=== PATIENT | male | born 1965 | race Caucasian/White ===

== ENCOUNTER → 2017-02-26 15:20 | Outpatient (CLI) | payer BC, SELFPAY ==
[2017-02-26 18:09] LABS: Anion Gap 9 (5-15); BUN 14 mg/dL (7-18); BUN/Creat Ratio 15.8 RATIO (10-20); Calcium,Total 8.8 mg/dL (8.5-10.1); Chloride 101 mmol/L (98-107); Cholesterol 226 mg/dL (200); Creatinine, Serum 0.88 mg/dL (0.70-1.30); EST Glomerular Filtration Rate 96 mL/min (>60); Est Glom Filt Rate - Afr Amer 116 mL/min (>60); Glucose 91 mg/dL (70-110); High Density Lipoprotein 43 mg/dL; PSA,Total - Annual Screen 0.64 ng/mL (0.00-4.00); Potassium 3.7 mmol/L (3.5-5.1); Sodium Level 135 mmol/L (136-145); Triglycerides 185 mg/dL; Very Low Density Lipoprotein 37 mg/dL (5-40)
== END ==
PROVIDERS: Family Provider Family Medicine; PCP Family Medicine; Visit Provider Family Medicine
DX: Z00.00 Encounter for general adult medical examination without abnormal findings (principal); Z12.5 Encounter for screening for malignant neoplasm of prostate
CPT/HCPCS: 36415; 80048; 80061; 84153; G0103

== ENCOUNTER → 2018-09-14 07:01 | Outpatient (CLI) | payer BC, SELFPAY ==
[2018-09-14 08:14] LABS: Anion Gap 6 (5-15); BUN 16 mg/dL (7-18); BUN/Creat Ratio 16.3 RATIO (10-20); Calcium,Total 9.3 mg/dL (8.5-10.1); Chloride 105 mmol/L (98-107); Cholesterol 208 mg/dL (200); Creatinine, Serum 0.98 mg/dL (0.70-1.30); EST Glomerular Filtration Rate 84 mL/min (>60); Est Glom Filt Rate - Afr Amer 102 mL/min (>60); Glucose 104 mg/dL (74-106); High Density Lipoprotein 40 mg/dL; PSA,Total - Annual Screen 0.93 ng/mL (0.00-4.00); Potassium 4.4 mmol/L (3.5-5.1); Sodium Level 141 mmol/L (136-145); Triglycerides 182 mg/dL; Very Low Density Lipoprotein 36 mg/dL (5-40)
[2018-09-14 13:48] LABS: Vitamin D,25 Hydroxy 27.3 ng/mL (29.95-100.01)
== END ==
PROVIDERS: Family Provider Family Medicine; PCP Family Medicine; Referring Provider Family Medicine; Visit Provider Family Medicine
DX: Z00.00 Encounter for general adult medical examination without abnormal findings (principal); Z12.5 Encounter for screening for malignant neoplasm of prostate
CPT/HCPCS: 36415; 80048; 80061; 82306; 84153; G0103

== ENCOUNTER 2019-05-26 10:12 | Emergency (ER) | payer BC, SELFPAY ==
[2019-05-26] VITALS (7 sets, daily range): BP systolic 118–166; BP diastolic 76–88; PULSE 86–104; RESP 11–19; TEMP 36.7; O2SAT 94–96; BMI 33.5
--- NOTE | 2019-05-26 10:27 | ED.VISSUMM ---
- ER Visit Summary Date of Service: 05/26/19 Chief Complaint: Chest pain History of Present Illness: The patient is a 53 M who presents with chest pain that is been constant for the past week. Patient states pain actually began 2 weeks ago but was intermittent the first week. Patient describes as a heaviness and pressure. Patient states the pain is over the substernal and left chest area. Patient states she does get some numbness and tingling down his left arm. Patient states his pain is worse with stress but it improves at night when he lays down. Patient admits to some shortness of breath with this. Patient also admits to some palpitations. Patient also states he feels like he has some reflux disease at times. Patient denies any nausea or vomiting. Patient denies any diaphoresis. Patient denies any cough or fevers. Patient denies any recent travel or recent surgery. Patient denies any history of DVT or PE. Patient states he quit smoking cigars 4 days ago. Physical Examination: Vital signs are stable. Patient is afebrile. Patient is in no acute distress. Oral mucosa is pink and moist. Neck is supple. Trachea is midline. There is no JVD noted. Heart was regular rate and rhythm. Lungs are clear and equal bilaterally. Abdomen is soft. Bowel sounds are normal. There is no tenderness. There is no rebound or guarding noted. Skin is warm dry. Cranial nerves II through XII are intact. There are no focal motor or sensory deficits noted. Extremities are intact. There is no calf tenderness or edema. Test Results: EKG showed normal sinus rhythm with a rate of 87. There are no acute ST or T wave changes. This was unchanged compared to previous EKG dated 08/11/1998. CBC, basic metabolic profile, troponin, and d-dimer were obtained were all normal. Portable chest x-ray was obtained. There is no acute cardiopulmonary process. This was interpreted by the radiologist and myself. Emergency Department Course and Treatment: Patient was given aspirin and sublingual nitroglycerin here. Patient had no change in his pain with the sublingual nitroglycerin. Patient has a HEART score of 3 and a KATARZYNA risk score of 0. Patient was advised that this is low risk for acute cardiac event. Case was discussed with Dr. Kelley. He will follow-up with the patient as an outpatient. Patient is agreeable with this plan. All questions were answered. Disposition: Discharge home Impression: Chest pain of uncertain etiology This note was generated with [employer] dictation software. It may contain incorrect words, spelling, and punctuation that were not noted in review of the chart prior to signing ED Disposition - Plan for ED Patient: Disposition: Home or Assisted Living Diagnosis: Chest pain of uncertain etiology Instructions: ED Chest Pain Atypical Unkn Cause Prescriptions: Hydrocodone Bitart/Apap 5-325 [[place] 5MG-325MG] 1 tab PO Q4H PRN PRN 2 Days #10 tab PRN Reason: Pain Prescription Printed Referrals: Steven Kelley MD [Primary Care Provider] - 3-5 Days
[2019-05-26 10:38] LABS: Absolute Lymphocyte Count 2.16 X10^3/uL (0.83-4.51); Absolute Neutrophil Count 4.4 X10^3/uL (2.0-7.7); Basophil# 0.03 X10^3/uL; Basophil% 0.4 % (0-1); Eosinophil# 0.07 X10^3/uL; Hematocrit 51.1 % (40-54); Hemoglobin 17.6 g/dL (13.0-16.5); Lymphocyte # 2.16 X10^3/ul (4.0); Lymphocyte % 29.7 % (19-41); Mean Corp Hgb Conc 34.4 g/dL (32-36); Mean Corpuscular Hgb 32.4 pg (27.0-32.0); Mean Corpuscular Volume 93.9 fL (80-94); Mean Platelet Vol. 8.9 fl (6.2-12.0); Monocyte# 0.64 X10^3/uL; Monocyte% 8.8 % (0-10); NRBC Flagged by Analyzer 0 % (0-5); Neutrophil # 4.36 X10^3/uL (2.7-7.7); Neutrophil % 59.8 % (47-70); Platelet Count 283 K/mm3 (150-450); RBC Distribution Width CV 13.1 % (11.6-14.6); Red Blood Count 5.44 M/mm3 (4.6-6.2); White Blood Count 7.3 K/mm3 (4.4-11.0)
[2019-05-26] MEDS: Aspirin 81 MG TAB.CHEW 324 MG PO (10:39)
--- NOTE | 2019-05-26 10:39 | RAD_ITS ---
STUDY: X-RAY CHEST REASON FOR EXAM: Male, 53 years old. CHEST PAIN x2 WEEKS, NOW HAVING N/T IN LEFT ARM TECHNIQUE: Single AP portable view of the chest. COMPARISON: Comparison is made with prior study dated February 08, 2012. FINDINGS: EKG electrodes are seen. The lungs are clear and expanded. There is no demonstrated pleural abnormality. Normal size heart. Normal mediastinum and [place]. Normal visualized pulmonary arteries. Normal visualized aortic arch and descending thoracic aorta. There are degenerative changes of the visualized thoracic spine. Normal visualized ribs, clavicles, and shoulders. There is no demonstrated abnormality of the visualized soft tissue structures of the upper abdomen. RAD/Chest 1 View (Portable) IMPRESSION: No acute abnormality is seen. Electronically Signed: Janusz Atkins, at 11:01 EDT , Service support ,
[2019-05-26] MEDS: Nitroglycerin SL (ED/IMG/CATH) 0.4 MG TABLET SUBLINGUAL ×2 (10:40→10:58)
[2019-05-26 10:49] LABS: Anion Gap 5 (5-15); BUN 17 mg/dL (7-18); BUN/Creat Ratio 16.7 RATIO (10-20); Calcium,Total 9.3 mg/dL (8.5-10.1); Chloride 103 mmol/L (98-107); Creatinine, Serum 1.02 mg/dL (0.70-1.30); EST Glomerular Filtration Rate 81 mL/min (>60); Est Glom Filt Rate - Afr Amer 98 mL/min (>60); Estimated Creatinine Clearance 85.48 ml/min; Glucose 109 mg/dL (74-106); Potassium 3.9 mmol/L (3.5-5.1); Sodium Level 136 mmol/L (136-145)
[2019-05-26 10:58] LABS: D-Dimer Quantitative (DVT/PE) <= 0.27 FEU/ug/m (0.27-0.49)
[2019-05-29 09:07] LABS: Testosterone, Free 8.22 ng/dL (5.00-21.00)
[2019-05-29 13:08] LABS: Testosterone, % Free 2.75 % (1.50-4.20); Testosterone, Total 299 ng/dL (264-916)
== END 2019-05-26 12:13 | disposition home or self-care (01) ==
PROVIDERS: Emergency Provider Emergency Medicine; PCP Family Medicine
DX: R07.9 Chest pain, unspecified (principal); Z87.891 Personal history of nicotine dependence
CPT/HCPCS: 71045; 80048; 84402; 84403; 84484; 85025; 85379; 93005; 99285; A4216

== ENCOUNTER → 2019-06-02 06:22 | Outpatient (CLI) | payer BC, SELFPAY ==
[2019-05-26 10:13] VITALS: BMI 33.5
--- NOTE | 2019-06-02 10:52 | STRESSREP ---
Stress Test Report Exercise myocardial perfusion stress test. 53-year-old man with a history of chest pain. Stress protocol: Resting EKG demonstrates normal sinus rhythm with a rate of 82 bpm normal intervals are noted resting blood pressure is 128/86 mmHg. The patient exercised according to regular Tarik protocol for a total duration of 7 minutes and 30 seconds the maximum heart rate attained was 160 bpm which was 96% of maximum predicted heart rate the maximum workload was 9.3 metabolic equivalents. At rest there were no ST or T wave changes noted to suggest ischemia at peak exercise upsloping ST changes only were noted with no meet the criteria for ischemia. The patient did experience chest tightness during stage I of the exercise which got mildly worse in stage II and then got better on discontinuation of the exercise. The resting blood pressure was 128/86 with a peak blood pressure 162/70. Rate-pressure product was 23,300. Myocardial perfusion protocol. 14.0 mCi of technetium 99m sestamibi was injected at rest. The patient exercised for a total duration of 7-1/2 minutes at peak exercise 42.0 mCi of technetium 99m sestamibi was injected stress images were obtained stress and rest images were reconstructed in comparing the short axis vertical long horizontal long axis. Gated images were also obtained per Perfusion SPECT analysis: Review of the stress images demonstrate normal uptake of tracer noted in all areas of the myocardium the resting images similar demonstrate normal uptake of tracer noted in all areas of the myocardium. Conclusion: Exercise myocardial perfusion stress test with no nuclear images suggestive of ischemia. Chest discomfort suggestive of angina noted during exercise. Decent functional capacity.
== END ==
PROVIDERS: PCP Family Medicine; Referring Provider Family Medicine; Visit Provider Family Medicine
DX: R07.89 Other chest pain (principal)
CPT/HCPCS: 78452; 93017; A9500; A4216

== ENCOUNTER 2019-06-26 06:43 | Day surgery (SDC) | payer BC, SELFPAY ==
[2019-06-18 15:40] VITALS: BMI 33.0
[2019-06-25 14:42] VITALS: BMI 33.0
--- NOTE | 2019-06-26 08:44 | CL.D_ITS ---
Patient Name: PAOLA WALTERS Study Date: 06/26/2019 Performing: Adolfo Glover MD Ht: 70.07 inches 178 cm : 1965 Wt: 229.28 lbs 104 kg Age: 54 Gender: male BSA: 2.21 PROCEDURE(S) PERFORMED [id number]/LV CLINICAL PROFILE AND INDICATIONS Indications: Suspected CAD Heart Failure: None Stress/Imaging Date: 06/02/2019Stress Test with SPECT MPI: Negative CAD Presentations: Stable angina. CONCLUSIONS Normal coronary arteries Normal LV size, wall motion,and systolic function RECOMMENDATIONS Medical therapy DESCRIPTION OF PROCEDURE The patient arrived to the procedure lab. The risks and benefits of the procedure as well as a full d escription of our services here and current unavailability of surgical backup were fully explained to the patient and/or their significant other prior to the catheterization. The Timeout was completed, verifying the correct patient and procedure. The patient's procedural site was prepped and draped in the usual fashion. Local anesthetic was given subcutaneously to right radial region with Lidocaine 2% . Using a modified Seldinger technique, arterial access was obtained via the right radial artery, a 6 Fr sheath was inserted. Right Coronary Artery selective angiography was then performed in multiple v iews using a 5 Fr. 4.0 [place] catheter. Left Coronary Artery selective angiography was performed in mu ltiple views using a 5 Fr. 4.0 [place] catheter. Left Ventriculography was performed in AGUDELO projection using a 5 Fr. Pigtail catheter. LV to AO pullback pressures were then recorded.The arterial sheath was pulled and a TR Band was applied for hemostasis, 12 cc of air placed in the band CORONARY ANGIOGRAPHY DOMINANCE: Co- Dominant LEFT HEART ASSESSMENT Left Ventricular Ejection Fraction: by LV Gram 60 % Normal LV wall motion Normal Left Ventricular systolic function Normal Left Ventricular systolic function LEFT MAIN: Angiographically normal LEFT ANTERIOR DESCENDING ARTERY: Angiographically normal CIRCUMFLEX ARTERY: Angiographically normal RIGHT CORONARY ARTERY: Angiographically normal COMPLICATIONS No Complications PROCEDURE MEDICATIONS Versed 1 mg IV Fentanyl 50 mcg IV Versed 1 mg IV Oxygen: 2 L/min via nasal cannula Heparin diluted in 23cc Heparinized saline. Patient given 10cc IA of this solution. 06/26/2019 08:17: 23 Verapamil 2.5mg, Ntg 100mcgs, 2000 units of Heparin diluted in 23cc Heparinized saline. Patient give n 10cc IA of this solution. 06/26/2019 08:17:23 SUMMARY OF HEMODYNAMIC DATA Time AIR REST ECG 07:20:06 AO 124/90 (106) SA 08:20:35 LV 139/19, 23 08:28:01 LV 138/19, 25 08:28:07 LVp 149/23, 35 08:28:49 AOp 137/90 (112) 08:28:54 Signed By Adolfo Glover MD On 06/26/2019 8:43:24 AM Adolfo Glover MD
== END 2019-06-26 10:15 | disposition home or self-care (01) ==
PROVIDERS: PCP Family Medicine; Referring Provider Internal Medicine Cardiovascular Disease; Visit Provider Internal Medicine Cardiovascular Disease
DX: R07.89 Other chest pain (principal); I20.8 Other forms of angina pectoris; Z79.899 Other long term (current) drug therapy; Z79.02 Long term (current) use of antithrombotics/antiplatelets; Z87.891 Personal history of nicotine dependence; R03.0 Elevated blood-pressure reading, without diagnosis of hypertension
CPT/HCPCS: 93458; 99152; 99153; J7040; C1769; C1894; Q9967

== ENCOUNTER → 2019-10-06 16:31 | Outpatient (CLI) | payer BC, SELFPAY ==
[2019-06-25 14:42] VITALS: BMI 33.0
[2019-10-06 18:33] LABS: Anion Gap 4 (5-15); BUN 15 mg/dL (7-18); BUN/Creat Ratio 16.4 RATIO (10-20); Calcium,Total 9.3 mg/dL (8.5-10.1); Chloride 105 mmol/L (98-107); Cholesterol 216 mg/dL (200); Creatinine, Serum 0.91 mg/dL (0.70-1.30); EST Glomerular Filtration Rate 92 mL/min (>60); Est Glom Filt Rate - Afr Amer 111 mL/min (>60); Glucose 88 mg/dL (74-106); High Density Lipoprotein 37 mg/dL; Potassium 3.8 mmol/L (3.5-5.1); Sodium Level 137 mmol/L (136-145); Triglycerides 163 mg/dL; Very Low Density Lipoprotein 33 mg/dL (5-40)
[2019-10-06 19:36] LABS: Vitamin D,25 Hydroxy 70.9 ng/mL
[2019-10-10 12:07] LABS: Testosterone, Free 22.77 ng/dL (5.00-21.00)
[2019-10-10 14:21] LABS: Testosterone, % Free 3.84 % (1.50-4.20); Testosterone, Total 593 ng/dL (264-916)
== END ==
PROVIDERS: PCP Family Medicine; Referring Provider Family Medicine; Visit Provider Family Medicine
DX: Z00.00 Encounter for general adult medical examination without abnormal findings (principal); E29.1 Testicular hypofunction; E55.9 Vitamin D deficiency, unspecified
CPT/HCPCS: 36415; 80048; 80061; 82306; 84402; 84403

== ENCOUNTER → 2020-04-12 16:44 | Outpatient (CLI) | payer BC, SELFPAY ==
[2019-06-25 14:42] VITALS: BMI 33.0
--- NOTE | 2020-04-12 16:46 | RAD_ITS ---
STUDY: X-RAY - LEFT SHOULDER REASON FOR EXAM: Male, 54 years old. INJURY TECHNIQUE: 4 view(s) of the shoulder. COMPARISON: None. FINDINGS: No acute fracture, dislocation or osseous destruction. Moderate/severe acromioclavicular joint arthrosis. Mild glenohumeral joint arthrosis. Left lung clear. No significant soft tissue swelling. RAD/Shoulder min 2 Views IMPRESSION: Left shoulder acutely intact Moderate/severe left AC joint arthrosis Mild left glenohumeral joint arthrosis Electronically Signed: Elmer Lares DO at 8:34 EST Tel , Service support ,
== END ==
PROVIDERS: PCP Family Medicine; Referring Provider Family Medicine; Visit Provider Family Medicine
DX: S49.92XA Unspecified injury of left shoulder and upper arm, initial encounter (principal)
CPT/HCPCS: 73030

== ENCOUNTER → 2022-10-20 | Outpatient (CLI) | payer OTHER, SELFPAY ==
[2022-10-20 17:34] LABS: Absolute Lymphocyte Count 2.59 X10^3/uL (0.83-4.51); Absolute Neutrophil Count 4.2 X10^3/uL (2.0-7.7); Basophil# 0.04 X10^3/uL; Basophil% 0.5 % (0-1); Eosinophil# 0.16 X10^3/uL; Hematocrit 46.1 % (40-54); Hemoglobin 15.7 g/dL (13.0-16.5); Lymphocyte # 2.59 X10^3/ul (0.83-4.51); Lymphocyte % 33.1 % (19-41); Mean Corp Hgb Conc 34.1 g/dL (32-36); Mean Corpuscular Hgb 32.6 pg (27.0-32.0); Mean Corpuscular Volume 95.8 fL (80-94); Mean Platelet Vol. 9.4 fl (6.2-12.0); Monocyte# 0.78 X10^3/uL; NRBC Flagged by Analyzer 0 % (0-5); Neutrophil # 4.23 X10^3/uL (2.7-7.7); Platelet Count 322 K/mm3 (150-450); RBC Distribution Width CV 13.5 % (11.6-14.6); RBC Distribution Width SD 48.2 fl (35.1-43.9); Red Blood Count 4.81 M/mm3 (4.6-6.2); White Blood Count 7.8 K/mm3 (4.4-11.0)
[2022-10-20 18:11] LABS: PSA,Total - Annual Screen 1.31 ng/mL (0.00-4.00)
== END | disposition home or self-care (01) ==
LOC: MFPLAB 16:36
PROVIDERS: PCP Family Medicine; Visit Provider Family Medicine
DX: R29.1 Meningismus (principal)
CPT/HCPCS: 36415; 84153; 84403; 85025; G0103

== ENCOUNTER 2023-01-22 17:01 | Outpatient (CLI) | payer OTHER, SELFPAY ==
[2023-01-22 18:15] LABS: Anion Gap 8 (5-15); BUN 18 mg/dL (7-18); BUN/Creat Ratio 18.1 RATIO (10-20); Calcium,Total 9.2 mg/dL (8.5-10.1); Chloride 105 mmol/L (98-107); EST Glomerular Filtration Rate 82 mL/min (>60); Est Glom Filt Rate - Afr Amer 99 mL/min (>60); Glucose 118 mg/dL (74-106); Potassium 3.8 mmol/L (3.5-5.1); Sodium Level 138 mmol/L (136-145)
== END 2023-01-22 23:59 | disposition home or self-care (01) ==
LOC: MFPLAB 17:01
PROVIDERS: PCP Family Medicine; Visit Provider Family Medicine
DX: E29.1 Testicular hypofunction (principal)
CPT/HCPCS: 36415; 80048; 84403

== ENCOUNTER 2024-02-01 21:33 | Emergency (ER) | payer OTHER, SELFPAY ==
[2024-02-01] VITALS (7 sets, daily range): BP systolic 144–195; BP diastolic 79–102; PULSE 90–104; RESP 16–19; TEMP 36–36.8; O2SAT 95–100; BMI 36.6
--- NOTE | 2024-02-01 22:20 | RAD_ITS ---
INDICATION: injury EXAMINATION/TECHNIQUE: X-RAY - LEFT XR Shoulder Min 2 Views 2 VIEWS COMPARISON: Prior study dated: 06/12/2020 FINDINGS: SOFT TISSUES: No soft tissue swelling or gas. No radiopaque foreign body. BONES/JOINTS: There is anterior-inferior dislocation of glenohumeral joint. No associated fractures noted. Normal appearance of the AC joint with the exception of subacromial osteophytes. Scapula is intact. No fractures involving the visualized rib cage. RAD/Shoulder min 2 Views IMPRESSION: 1. Anterior inferior dislocation of the LEFT glenohumeral joint. No fractures noted. Electronically Signed: Nicho Collado MD at 23:10 EST ,
--- NOTE | 2024-02-01 22:21 | ED.VIS.FALL ---
HPI HPI - Fall History of Present Illness Chief Complaint: Fall Informant: patient and family Narrative Narrative: Patient here with son. Mechanical fall outside on the porch, snowing outside. He fell onto his left side with his left arm over his head. Pain in his shoulder and left upper chest. No head injury no loss conscious. No headache. No back pain. No hip pain. Last meal 3 hours ago. Pain with movement of the shoulder. No history of fractures. Has not followed orthopedics. Prior similar symptoms: No PFSH PFSH Medical History Nicotine dependence Home Medications ?Medication ?Instructions ?Recorded ?Last Taken ?Type testosterone cypionate 100 mg/mL 0.5 ml IM QWEEK 05/26/19 Unknown History intramuscular oil buspirone 7.5 mg tablet 7.5 mg PO TID 05/05/20 Unknown History meloxicam 7.5 mg tablet 7.5 mg PO DAILY 05/05/20 Unknown History sertraline 50 mg tablet 50 mg PO DAILY 05/05/20 Unknown History meloxicam 15 mg tablet 15 mg PO DAILY #14 tabs 05/07/20 Unknown Rx docusate sodium 100 mg capsule 100 mg PO DAILY #30 caps 02/02/24 Unknown Rx (Colace) oxycodone-acetaminophen 5 mg-325 1 tab PO Q6H PRN PRN Pain 5 days 02/02/24 Unknown Rx mg tablet #20 TABLETS Allergy/AdvReac Type Severity Reaction Status Date / Time No Known Allergies Allergy Verified 02/01/24 21:34 Surgical History History of left heart catheterization (06/26/19) No history of previous surgery Social History Smoking Status: Former smoker quit date: 05/17/19 Smokeless tobacco user: other ROS ROS ED Constitutional Constitutional ED: Denies chills, fever(s) or sweats ENT ENT ED: Denies sore throat Cardiovascular Cardiovascular: Denies chest pain, leg edema, palpitations or racing heartbeat Respiratory/Chest Respiratory/Chest: Denies cough, dyspnea or dyspnea on exertion Gastrointestinal Gastrointestinal: Denies abdominal pain, diarrhea, nausea or vomiting Genitourinary Genitourinary ED: Denies dysuria, hematuria or urinary frequency Musculoskeletal Musculoskeletal: Reports extremity pain; Denies back pain or neck pain Integumentary Denies rash or wounds Neurologic Neurologic: Denies headache(s), paresthesias or weakness EXAM Physical Exam Const Vital Signs: 02/01/24 21:34 02/01/24 21:53 02/01/24 23:03 Temperature 96.8 F L Temperature Source Temporal Pulse Rate 95 Pulse Rate [1] Pulse Rate [3] Pulse Rate [4] Pulse Rate [5] Respiratory Rate 18 Respiratory Rate [1] Respiratory Rate [3] Respiratory Rate [4] Respiratory Rate [5] Respiratory Effort Normal Non-Labored Respiratory Depth Normal Respiratory Pattern Normal Blood Pressure 195/102 H Blood Pressure [1] Blood Pressure [5] Blood Pressure Mean 133 Pulse Ox 95 Oxygen Delivery Method Room Air Oxygen Delivery Method [1] Oxygen Delivery Method [2] Oxygen Delivery Method [3] Oxygen Delivery Method [4] Oxygen Delivery Method [5] Oxygen Flow Rate (L/min) Oxygen Flow Rate (L/min) [2] Oxygen Flow Rate (L/min) [3] Oxygen Flow Rate (L/min) [4] Oxygen Flow Rate (L/min) [5] EtCo2 (Normal 35-45 , high quality CPR 10-20 & ROSC>/=40mmHg 39 EtCo2 (Normal 35-45 , high quality CPR 10-20 & ROSC>/=40mmHg [1] EtCo2 (Normal 35-45 , high quality CPR 10-20 & ROSC>/=40mmHg [2] EtCo2 (Normal 35-45 , high quality CPR 10-20 & ROSC>/=40mmHg [3] EtCo2 (Normal 35-45 , high quality CPR 10-20 & ROSC>/=40mmHg [4] EtCo2 (Normal 35-45 , high quality CPR 10-20 & ROSC>/=40mmHg [5] 02/01/24 23:30 02/01/24 23:32 02/01/24 23:34 Temperature 98.2 F Temperature Source Pulse Rate 95 104 H Pulse Rate [1] Pulse Rate [3] Pulse Rate [4] Pulse Rate [5] Respiratory Rate 16 19 H Respiratory Rate [1] Respiratory Rate [3] Respiratory Rate [4] Respiratory Rate [5] Respiratory Effort Respiratory Depth Respiratory Pattern Blood Pressure 177/79 H 168/99 H Blood Pressure [1] Blood Pressure [5] Blood Pressure Mean 122 Pulse Ox 96 96 Oxygen Delivery Method Room Air Room Air Oxygen Delivery Method [1] Oxygen Delivery Method [2] Oxygen Delivery Method [3] Oxygen Delivery Method [4] Oxygen Delivery Method [5] Oxygen Flow Rate (L/min) Oxygen Flow Rate (L/min) [2] Oxygen Flow Rate (L/min) [3] Oxygen Flow Rate (L/min) [4] Oxygen Flow Rate (L/min) [5] EtCo2 (Normal 35-45 , high quality CPR 10-20 & ROSC>/=40mmHg 40 40 EtCo2 (Normal 35-45 , high quality CPR 10-20 & ROSC>/=40mmHg [1] EtCo2 (Normal 35-45 , high quality CPR 10-20 & ROSC>/=40mmHg [2] EtCo2 (Normal 35-45 , high quality CPR 10-20 & ROSC>/=40mmHg [3] EtCo2 (Normal 35-45 , high quality CPR 10-20 & ROSC>/=40mmHg [4] EtCo2 (Normal 35-45 , high quality CPR 10-20 & ROSC>/=40mmHg [5] 02/01/24 23:37 02/01/24 23:42 02/01/24 23:47 Temperature Temperature Source Pulse Rate Pulse Rate [1] Pulse Rate [3] Pulse Rate [4] Pulse Rate [5] Respiratory Rate Respiratory Rate [1] Respiratory Rate [3] Respiratory Rate [4] Respiratory Rate [5] Respiratory Effort Respiratory Depth Respiratory Pattern Blood Pressure Blood Pressure [1] Blood Pressure [5] Blood Pressure Mean Pulse Ox Oxygen Delivery Method Nasal Cannula Room Air Room Air Oxygen Delivery Method [1] Oxygen Delivery Method [2] Oxygen Delivery Method [3] Oxygen Delivery Method [4] Oxygen Delivery Method [5] Oxygen Flow Rate (L/min) 2 Oxygen Flow Rate (L/min) [2] Oxygen Flow Rate (L/min) [3] Oxygen Flow Rate (L/min) [4] Oxygen Flow Rate (L/min) [5] EtCo2 (Normal 35-45 , high quality CPR 10-20 & ROSC>/=40mmHg 40 39 40 EtCo2 (Normal 35-45 , high quality CPR 10-20 & ROSC>/=40mmHg [1] EtCo2 (Normal 35-45 , high quality CPR 10-20 & ROSC>/=40mmHg [2] EtCo2 (Normal 35-45 , high quality CPR 10-20 & ROSC>/=40mmHg [3] EtCo2 (Normal 35-45 , high quality CPR 10-20 & ROSC>/=40mmHg [4] EtCo2 (Normal 35-45 , high quality CPR 10-20 & ROSC>/=40mmHg [5] 02/01/24 23:50 02/02/24 00:30 Temperature 98.3 F Temperature Source Pulse Rate 87 Pulse Rate [1] 95 Pulse Rate [3] 90 Pulse Rate [4] 90 Pulse Rate [5] 90 Respiratory Rate 16 Respiratory Rate [1] 18 Respiratory Rate [3] 18 Respiratory Rate [4] 16 Respiratory Rate [5] 16 Respiratory Effort Respiratory Depth Respiratory Pattern Blood Pressure 166/70 H Blood Pressure [1] 177/79 H Blood Pressure [5] 144/90 H Blood Pressure Mean 102 Pulse Ox 98 Oxygen Delivery Method Oxygen Delivery Method [1] Room Air Oxygen Delivery Method [2] Nasal Cannula Oxygen Delivery Method [3] Nasal Cannula Oxygen Delivery Method [4] Nasal Cannula Oxygen Delivery Method [5] Nasal Cannula Oxygen Flow Rate (L/min) Oxygen Flow Rate (L/min) [2] 2 Oxygen Flow Rate (L/min) [3] 2 Oxygen Flow Rate (L/min) [4] 2 Oxygen Flow Rate (L/min) [5] 2 EtCo2 (Normal 35-45 , high quality CPR 10-20 & ROSC>/=40mmHg EtCo2 (Normal 35-45 , high quality CPR 10-20 & ROSC>/=40mmHg [1] 40 EtCo2 (Normal 35-45 , high quality CPR 10-20 & ROSC>/=40mmHg [2] 40 EtCo2 (Normal 35-45 , high quality CPR 10-20 & ROSC>/=40mmHg [3] 40 EtCo2 (Normal 35-45 , high quality CPR 10-20 & ROSC>/=40mmHg [4] 40 EtCo2 (Normal 35-45 , high quality CPR 10-20 & ROSC>/=40mmHg [5] 40 Positive well nourished and well developed Constitutional Narrative: Uncomfortable, nontoxic, GCS 15. General Appearance ED: well developed HEENT Reports moist mucous membranes normocephalic and atraumatic Eyes General Eye ED: Yes normal appearance of both eyes Neck full ROM and no lymphadenopathy Chest Wall inspection of chest normal and palpation of chest normal Chest Narrative: No crepitus. Chest: Negative for tenderness Resp normal respiratory effort and normal air movement Resp Narrative: Symmetric breath sounds. Effort and Inspection: symmetric chest movement; Negative for respiratory distress Cardio regular rate, regular rhythm and no murmurs Peripheral Pulses: pulses 2+ throughout GI normal to inspection, nondistended, normoactive bowel sounds and non-tender Palpation: Negative for guarding or rebound tenderness present Extremity Extremity Narrative: Left upper extremity. No clavicle tenderness. No acromioclavicular tenderness. There is a defect noted superior aspect of shoulder pain with movement of the shoulder. No elbow tenderness. Soft compartments. Neuro vas intact distally. General Extremety ED: Yes tenderness; Negative for edema General Extremity: Negative for edema Neuro oriented x3 and no sensory deficits noted Sensorium / Orientation: awake and alert Skin no rashes or lesions noted and no wounds MDM MDM MDM Narrative Medical decision making narrative: Interventions / MDM: Differential diagnosis: Left shoulder dislocation, fall Diagnosis considered but do not suspect: Fracture however x-ray negative. Pneumothorax however x-ray negative. My EKG interpretation: N/A Imaging independently reviewed and interpreted by myself: 1 view chest x-ray: No pneumothorax. Anterior left shoulder dislocation. 3 view left shoulder: Anterior shoulder dislocation there is no fracture. 1 view scapular Y post reduction: Relocation noted. External documents reviewed: N/A Test considered but not ordered:N/A ED course: Clinically concerns for dislocation left shoulder. IV will be established. Pain medicines and morphine Zofran for antiemetics. X-ray left shoulder and chest x-ray for further evaluation. X-ray confirmed dislocation without fracture. Preparation for conscious sedation. 2332: Written consent obtained. Risks and benefits. Last meal 7 PM more than 4 hours prior to procedure. clinical research monitor pulse ox oxygenation capnography and fluids were started. Normal sinus rhythm on the monitor. Blood pressure elevated secondary to pain. Timeout performed. Patient initiated propofol starting at 50 mg, additional 20 then 30 mg for total 100 mg were given to achieve sedation effects. Nursing provided traction with sheet, Vega maneuver was used with clinical relocation. Patient placed in a sling and swath. Post x-ray reduction ordered. X-ray confirms relocation. Still discomfort is 6, additional Toradol started oxycodone. Discussed with patient's son possibility of rotator cuff injury and tear with his dislocation. He will be continued on oxycodone he has meloxicam at home for which she will also continue. Stool softener provided prevent constipation. Can follow-up with orthopedics. All questions were answered. Re-evaluation: stable Disposition discussed with patient/family/significant other: Patient and family Case discussed with consulting clinician: N/A This note was generated with [email or web address] dictation software. It may contain incorrect words, spelling, and punctuation that were not noted in checking the note before signing. Radiography Diagnostic Testing: Clinical Impression(s) from Imaging Studies Shoulder X-Ray 02/01/24 22:20 IMPRESSION: 1. Anterior inferior dislocation of the LEFT glenohumeral joint. No fractures noted. Electronically Signed: Nicho Collado MD at 23:10 EST , Chest X-Ray 02/01/24 22:46 IMPRESSION: 1. No evidence of acute cardiopulmonary process 2. Anterior inferior dislocation of the LEFT glenohumeral joint. Electronically Signed: Nicho Collado MD at 23:11 EST , Shoulder X-Ray 02/01/24 23:45 IMPRESSION: 1. Limited transscapular examination documents interval closed reduction. 2. Limited bony detail, and fractures and acute bony changes cannot be excluded. Electronically Signed: Nicho Collado MD at 0:07 EST , Procedures Procedural Sedation 1 (Initial Baseline): Consent Signed: Yes Sedation medication: Propofol Dose: 100 Maliampati Score: Class III ASA Classification: II Discharge Plan Triage Chief Complaint: Fall ED Provider: Sesar Alejo Dx/Rx/DC Orders Clinical Impression: Traumatic dislocation of left shoulder, Left shoulder pain, History of conscious sedation Instructions: ED Procedural Sedation, (Adult), ED Dislocation: Shoulder (Reduced) Prescriptions: New oxycodone-acetaminophen 5-325 mg tablet 1 tab PO Q6H PRN PRN (Reason: Pain) 5 Days Qty: 20 0RF docusate sodium [Colace] 100 mg capsule 100 mg PO DAILY Qty: 30 0RF No Action buspirone 7.5 mg tablet 7.5 mg PO TID sertraline 50 mg tablet 50 mg PO DAILY meloxicam 7.5 mg tablet 7.5 mg PO DAILY testosterone cypionate 100 MG/ML oil 0.5 ml IM QWEEK meloxicam 15 mg tablet 15 mg PO DAILY Qty: 14 0RF Rx Instructions: Do not take in conjunction with any other NSAIDs. Primary Care Provider: Steven Kelley Referrals: Steven Kelley MD [Primary Care Provider] - Zachariah Marin MD [Med Staff - Active Staff] - 5-7 Days Activity Restrictions/Additional Instructions: Traumatic dislocation left shoulder. Reduced in the ED. Pain meds as prescribed continue meloxicam. Take stool softener event constipation. Maintain your sling and swath position. Follow-up with Dr. Marin. Print Language: Greenlandic Disposition Disposition: Home, Self Care Discharge Date/Time: 02/02/24 00:47
[2024-02-01] MEDS: Morphine 4 MG/ML Syringe IV (22:30)
[2024-02-01] MEDS: Ondansetron 4 MG/2 ML Vial IV (22:31)
--- NOTE | 2024-02-01 22:46 | RAD_ITS ---
INDICATION: injury EXAMINATION/TECHNIQUE: X-RAY - XR Chest 1 View COMPARISON: No previous relevant examinations available for comparison.. FINDINGS: LIFE-SUPPORT AND LINES: 1. None HEART AND VESSELS: The cardiac silhouette, pulmonary vasculature have normal appearance. No evidence of congestive failure. LUNGS AND PLEURAL SPACES: Lungs are clear. No focal infiltrate, consolidation or effusions. No evidence of pneumothorax. No pulmonary mass is noted. MEDIASTINUM AND HILAR REGIONS: No masses adenopathy noted. No areas of calcification. Visualized upper airway is normal in position. BONY ELEMENTS: Anterior inferior dislocation of the LEFT shoulder. RAD/Chest 1 View IMPRESSION: 1. No evidence of acute cardiopulmonary process 2. Anterior inferior dislocation of the LEFT glenohumeral joint. Electronically Signed: Nicho Collado MD at 23:11 EST ,
[2024-02-01] MEDS: Propofol 200 MG/20 ML Vial IV BOLUS (23:16)
--- NOTE | 2024-02-01 23:45 | RAD_ITS ---
INDICATION: reduction EXAMINATION/TECHNIQUE: X-RAY - LEFT XR Shoulder 1 View 1 VIEWS COMPARISON: Imaging of the LEFT shoulder on the same date FINDINGS: SOFT TISSUES: No soft tissue swelling or gas. No radiopaque foreign body. BONES/JOINTS: There has been interval closed reduction. There appears to be normal alignment on single AP view. Severely limited examination due to technique and fracture and acute bony changes cannot be excluded. RAD/Shoulder One View IMPRESSION: 1. Limited transscapular examination documents interval closed reduction. 2. Limited bony detail, and fractures and acute bony changes cannot be excluded. Electronically Signed: Nicho Collado MD at 0:07 EST ,
[2024-02-02] MEDS: Ketorolac 15 MG/ML Vial IV (00:12)
[2024-02-02] MEDS: oxyCODONE 5 MG Tablet PO (00:13)
[2024-02-02 00:30] VITALS: BP 166/70; PULSE 87; RESP 16; TEMP 36.8; O2SAT 98
== END 2024-02-02 00:47 | disposition home or self-care (01) ==
PROVIDERS: Emergency Provider Emergency Medicine; PCP Family Medicine; Visit Provider Emergency Medicine
DX: S43.015A Anterior dislocation of left humerus, initial encounter (principal); S43.035A Inferior dislocation of left humerus, initial encounter; W19.XXXA Unspecified fall, initial encounter; Z87.891 Personal history of nicotine dependence
CPT/HCPCS: 23650; 71045; 73020; 73030; 96374; 96375; 99152; 99284; A4216; J2405

== ENCOUNTER → 2024-04-23 | Outpatient (CLI) | payer BC, SELFPAY ==
--- NOTE | 2024-04-23 07:01 | EKG12_ITS ---
Test Reason : PREOP Blood Pressure : */* mmHG Vent. Rate : 88 BPM Atrial Rate : 88 BPM P-R Int : 172 ms QRS Dur : 90 ms QT Int : 372 ms P-R-T Axes : 38 37 48 degrees QTcB Int : 450 ms Normal sinus rhythm Normal ECG Confirmed by Buddy Pinto ([id number]), editor producer CLARITZA MONREAL ([id number]) on 04/24/2024 5:52:51 AM Referred By: Sam Albert Confirmed By: Buddy Pinto
[2024-04-23 08:11] LABS: Absolute Lymphocyte Count 3.14 X10^3/uL (0.83-4.51); Absolute Neutrophil Count 3.7 X10^3/uL (2.0-7.7); Basophil# 0.04 X10^3/uL; Basophil% 0.5 % (0-1); Eosinophils% 2.5 % (0-5); Hematocrit 45.5 % (40-54); Hemoglobin 15.6 g/dL (13.0-16.5); Lymphocyte # 3.14 X10^3/ul (0.83-4.51); Lymphocyte % 39.5 % (19-41); Mean Corp Hgb Conc 34.3 g/dL (32-36); Mean Corpuscular Hgb 33.2 pg (27.0-32.0); Mean Corpuscular Volume 96.8 fL (80-94); Mean Platelet Vol. 9.3 fl (6.2-12.0); Monocyte# 0.79 X10^3/uL; Monocyte% 9.9 % (0-10); NRBC Flagged by Analyzer 0 % (0-5); Neutrophil # 3.73 X10^3/uL (2.7-7.7); Neutrophil % 47.1 % (47-70); Platelet Count 342 K/mm3 (150-450); RBC Distribution Width CV 13.6 % (11.6-14.6); RBC Distribution Width SD 48.6 fl (35.1-43.9); White Blood Count 7.9 K/mm3 (4.4-11.0)
[2024-04-23 08:49] LABS: Anion Gap 12 (5-15); BUN 16 mg/dL (4-19); Calcium,Total 9.9 mg/dL (7.6-11.0); Carbon Dioxide 25.2 mmol/L (21.0-32.0); Chloride 103 mmol/L (98-108); Creatinine, Serum 0.96 mg/dL (0.70-1.20); EST Glomerular Filtration Rate 91 (>60); Glucose 133 mg/dL (70-99); Potassium 4.5 mmol/L (3.3-5.1); Sodium Level 140 mmol/L (133-145)
== END | disposition home or self-care (01) ==
PROVIDERS: PCP Family Medicine; Referring Provider Student in an Organized Health Care Education/Training Program; Visit Provider Student in an Organized Health Care Education/Training Program
DX: Z01.810 Encounter for preprocedural cardiovascular examination (principal); Z01.818 Encounter for other preprocedural examination
CPT/HCPCS: 36415; 80048; 85025; 93005